=== PATIENT | female | born 1945 | race Caucasian/White ===

== ENCOUNTER 2024-05-04 12:01 | Day surgery (SDC) | payer MEDICARE ==
[2024-04-30 14:06] LABS: APTT 28 SECONDS (22-32); INR 1.1 INR; PROTHROMBIN TIME 11.6 SECONDS (9.0-12.0)
[2024-04-30 14:07] LABS: BASOPHILS # (AUTO) 0.1 X10'3 (0-0.2); BASOPHILS % (AUTO) 0.7 % (0-1); EOSINOPHILS # (AUTO) 0.2 X10'3 (0-0.9); EOSINOPHILS % (AUTO) 2.4 % (0-6); HEMATOCRIT 43.2 % (35.0-45.0); HEMOGLOBIN 14.5 g/dl (12.0-16.0); LYMPHOCYTES # (AUTO) 2.7 X10'3 (1.1-4.8); LYMPHOCYTES % (AUTO) 28.8 % (21-51); MEAN CORPUSCULAR HEMOGLOBIN 29.8 PG (27.0-31.0); MEAN CORPUSCULAR HGB CONC 33.5 g/dL (33.0-36.5); MEAN PLATELET VOLUME 7.7 FL (7.4-10.4); MONOCYTES # (AUTO) 0.8 X10'3 (0-0.9); MONOCYTES % (AUTO) 8.5 % (2-12); NEUTROPHILS # (AUTO) 5.5 X10'3 (1.8-7.7); NEUTROPHILS % (AUTO) 59.6 % (42-75); PLATELET COUNT 291 X10'3 (140-440); RED BLOOD COUNT 4.85 X10'6 (4.20-5.60); RED CELL DISTRIBUTION WIDTH 14.7 % (11.5-14.5); WHITE BLOOD COUNT 9.3 X10'3 (4.5-11.0)
[2024-04-30 14:08] LABS: ALBUMIN 3.6 G/DL (3.4-5.0); ANION GAP 11 (8-16); BLOOD UREA NITROGEN 30 MG/DL (7-18); BUN/CREATININE RATIO 20.8 (10.0-20.0); CALCIUM 10.3 MG/DL (8.5-10.1); CHLORIDE 103 MMOL/L (99-107); CHOL/HDL RATIO 3.1 (0.00-4.99); CHOLESTEROL 180 MG/DL (0-200); CREATININE 1.44 MG/DL (0.40-0.90); GLUCOSE 126 MG/DL (70-104); HDL CHOLESTEROL 58 MG/DL (35-60); LDL CHOLESTEROL 86 MG/DL (50-100); POTASSIUM 3.6 MMOL/L (3.5-5.1); SODIUM 140 MMOL/L (135-145); TOTAL CARBON DIOXIDE 26.4 MMOL/L (24-32); TRIGLYCERIDES 234 MG/DL (20-135); eGFR 35 ML/MIN
[~2024-05-04] VITALS: Ht 154.9 cm; Wt 98.2 kg
[2024-05-04] VITALS (9 sets, daily range): BP systolic 98–153; BP diastolic 53–107; PULSE 62–89; RESP 13–16; TEMP 97.5; O2SAT 96–98
[2024-05-04] MEDS ORDERED: iohexol 350MG/ML 100ml bottle IV ONE ×2 (12:03→14:44)
[2024-05-04] MEDS ORDERED: fentaNYL/PF 50MCG/1 ML 2ML syringe ONE (12:03)
[2024-05-04] MEDS ORDERED: LIDOcaine 1% (10mg/ml) 2ml vial ONE (12:03)
[2024-05-04] MEDS ORDERED: verapamil 2.5 mg/ml inj IV ONE (12:03)
[2024-05-04] MEDS ORDERED: heparin 1,000unit/ml 10ml vial 10 ML ONE (12:03)
[2024-05-04] MEDS ORDERED: midazolam 1 mg/ML 2ml injection ONE (12:03)
[2024-05-04] MEDS ORDERED: nitroGLYCERIN 500mcg/5mL D5W 5 ML IV ONE (12:08)
[2024-05-04] MEDS ORDERED: LORazepam 0.5 MG tablet PO PRN (12:30)
[2024-05-04] MEDS ORDERED: APIX5TAB3 PO (12:41)
[2024-05-04] MEDS ORDERED: FENO200C28 PO (12:41)
[2024-05-04] MEDS ORDERED: EZET10TA48 PO (12:41)
[2024-05-04] MEDS ORDERED: LOSA100T58 PO (12:41)
[2024-05-04] MEDS ORDERED: SEMA0.258 SQ (12:41)
[2024-05-04] MEDS ORDERED: ESTR0.6261 PO (12:41)
[2024-05-04] MEDS ORDERED: POTA10CA95 PO (12:41)
[2024-05-04] MEDS ORDERED: ROSU10TA72 PO (12:43)
[2024-05-04] MEDS: normal saline 1,000 ML IV SCH (12:55)
[2024-05-04] MEDS: diphenhydrAMINE 25mg capsule PO PRN (12:55)
[2024-05-04] MEDS ORDERED: clopidogrel 300mg tablet ONE (14:52)
[2024-05-04] MEDS ORDERED: aspirin 325mg tablet ONE (14:52)
[2024-05-04] MEDS ORDERED: CLOP75TA34 PO (15:33)
[2024-05-04] MEDS ORDERED: ASPI81TA52 PO (15:33)
[2024-05-04] MEDS ORDERED: HYDROcodone/acetaminophen 10/325mg tab PO PRN (15:40)
[2024-05-04] MEDS ORDERED: HYDROcodone/acetaminophen 5mg/325mg tablet PO PRN (15:40)
== END 2024-05-04 17:40 | disposition home or self-care (01) ==
LOC: SSTAY O 12:01
PROVIDERS: ATTEND Internal Medicine Interventional Cardiology
DX: I25.10 Atherosclerotic heart disease of native coronary artery without angina pectoris (principal); I70.0 Atherosclerosis of aorta; I48.91 Unspecified atrial fibrillation; I48.0 Paroxysmal atrial fibrillation; E11.22 Type 2 diabetes mellitus with diabetic chronic kidney disease; I25.2 Old myocardial infarction; E11.42 Type 2 diabetes mellitus with diabetic polyneuropathy; N18.30 Chronic kidney disease, stage 3 unspecified; G62.9 Polyneuropathy, unspecified; Z79.899 Other long term (current) drug therapy; Z98.890 Other specified postprocedural states
CPT/HCPCS: 36415; 80048; 80061; 82948; 85025; 85610; 85730; 93005; 93458; 99152; 99153; A6258; C1725; C1751; C1769; C1874; C1894; C9600; J1644; J2003; J2250; J3010; J3490; J7030; Q0163; Q9967; Z7610

== ENCOUNTER 2025-05-14 15:55 | Emergency (ER) | payer MEDICARE, OTHER ==
[~2025-05-14] VITALS: Ht 154.9 cm; Wt 88.3 kg
[~2025-05-14 15:55] MED LIST: APIX5TAB3 PO; CLOP75TA34 PO; ESTR0.6261 PO; EZET10TA80 PO; FENO200C28 PO; LOSA100T58 PO; POTA10CA95 PO; ROSU10TA98 PO; SEMA0.258 SQ
--- NOTE | 2025-05-14 16:29 | ELECTROCARDIOGRAPH REPORT ---
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
--- NOTE | 2025-05-14 17:16 | Physician Documentation ---
History of Present Illness ~ Chief Complaint: Palpitations Stated Complaint: EPISTAXIS Time Seen by MD: 16:11 OK to notify your PCP?: Yes Source: patient Mode of Arrival: POV Exam Limitations: no limitations HPI 80-year-old female who is here due to a nosebleed. She reports she had four nosebleeds today which is very unusual for her. She had three nosebleeds before noon today and then when she had her 4th nosebleed which was around 1430 this afternoon she called an ambulance as she states she also started to feel lightheaded. She states that the nosebleed started about three months ago and she has been averaging about one nosebleed a month and she has never had anything. She is on Eliquis has been on Eliquis for 2-3 years now. Denies any other bleeding issues such as bleeding from her gums or rectum. No chest pain or syncopal episodes. No sinus pain, fever, chills, sore throat. Pre arrival treatment with fluticasone nasal spray which she states she read online to use a nasal spray so she use the fluticasone. She states this did not help. Medication Reconciliation Allergies: Coded Allergies: pregabalin (Verified Allergy, Unknown, 05/14/25) Scheduled Apixaban (Eliquis), 1 TAB PO BID, (Reported) Clopidogrel Bisulfate (Clopidogrel), 1 TAB PO DAILY Estrogens, Conjugated (Premarin), 1 TAB PO DAILY, (Reported) Ezetimibe (Ezetimibe), 1 TAB PO DAILY, (Reported) Fenofibrate,Micronized (Fenofibrate), 1 CAP PO DAILY, (Reported) Losartan Potassium (Losartan Potassium), 0.5 TAB PO DAILY, (Reported) Potassium Chloride* (Potassium Chloride*), 1 TAB PO BID, (Reported) Rosuvastatin Calcium (Rosuvastatin Calcium), 1 TAB PO HS, (Reported) Semaglutide (Ozempic), 0.25 MG SQ Q7D, (Reported) Past Medical History Past Medical History: No Pertinent History Past Surgical History: noncontributory Review of Systems All Other Systems at this time: Reviewed and Negative Physical Exam Vital Signs: Temperature: 97.1, Source: Temporal, Heart Rate: 94, Respiratory Rate: 16, BP: 102/81, Pulse Oximetry: 99, Weight: 88.270 Oxygen Flow Rate: 0 Physical Exam General Appearance: Alert, WD/WN. NAD. HEENT: NCAT, PERRL, EOMI. Posterior pharyngeal wall no blood. Left and right nostril some blood but no active bleeding. No sinus tenderness. Neck: Supple, trachea midline. Cardiovascular: RRR. No m/r/g. Lungs: CTAB. Breathing unlabored Extremities: Normal inspection. No edema. Skin: Warm/dry, normal color Neurological: Alert and oriented x4, normal gait. Psychiatric: Affect congruent with mood. Progress Results/Orders Results/Orders Orders - ARSEN BARTHOLOMEW Cbc/Diff (05/14/25 17:02) Bmp Er (05/14/25 17:02) Oxymetazoline Nasal [place] (Afrin Nasal S (05/14/25 17:45) Completed Orders - ARSEN BARTHOLOMEW Electrocardiogram (05/14/25 ) Vital Signs 05/14/25 05/14/25 05/14/25 16:15 17:04 17:24 Temp 97.1 Pulse 96 94 Resp 19 16 14 B/P (MAP) 110/61 102/81 (88) Pulse Ox 100 99 O2 Flow Rate 0 0 Laboratory Tests Test 05/14/25 16:12 05/14/25 17:28 Glucometer 158 H CBC Comment Chemistry Comments Medical Decision Making Additional information obtaine: old records Findings reviewed heart cath report from 04/2024 Differential Dx:Considerations: Include: angina / MD, atrial dysrhythmia, atrial fibrillation, atrial flutter, MAT, PACs, PSVT, sinus tachycardia, WPW, 1st degree AV block, 2nd degree AVB-type 1, 2nd degree AVB-type 2, 3rd degree AV block, PVCs, torsades de pointes, ventricular fibrillation, ventricular tachycardia Differential Dx:Considerations: Include anxiety/panic attack, Include heart failure, Include pulmonary embolus, Include renal failure Additional Information Considering patient reports lightheadedness associated with the nosebleeds I wanted to get a CBC to make sure that her hemoglobin was okay. She did not require nasal packing as the nosebleed subsided on its own. I recommended she follow up with primary care provider for referral to ENT given how nosebleeds have been recurrent over the past three nights. Departure Time of Disposition: 17:17 Disposition: 01 HOME / SELF CARE / HOMELESS Impression: Primary Impression: Frequent nosebleeds Additional Impressions: Chronic anticoagulation Atrial fibrillation Qualified Codes: I48.91 - Unspecified atrial fibrillation Intermittent lightheadedness Condition: Stable Discharge Instructions: General Discharge Instructions Additional Instructions: I do recommend you get a referral to an ear nose throat physician due to these recurrent nosebleeds. Follow up with primary care provider when you are able to for this referral as we can not refer from the ER. If nosebleed recurs pinch the end of your nose like we discussed for 15 minutes if it continues after this than come to the ER. And make sure that you pinch the end of your nose continuously for that duration of time before you unpinch. As well as use afrin to help the vessels in the nose constrict. Afrin can be addicting and thus only use it as directed for nosebleeds. Referrals: NO PRIMARY CARE PROVIDER (PCP) Education Educated: Patient Educated regarding: diagnosis, treatment, need for follow up Signature Scribe Signature: x Attestation: ARSEN Charles May 14, 2025 17:16
[2025-05-14 17:43] LABS: MEAN PLATELET VOLUME 8.2 FL (7.4-10.4); RED CELL DISTRIBUTION WIDTH 14.3 % (11.5-14.5)
[2025-05-14] MEDS ORDERED: oxymetazoline 15 ML nasal spray NS ONE (17:45)
[2025-05-14 17:55] LABS: CREATININE 1.91 MG/DL (0.40-0.90); TOTAL CARBON DIOXIDE 24.0 MMOL/L (24-32); eCRCL 18 ML/MIN; eGFR 25 ML/MIN
[2025-05-14 17:57] VITALS: BP 99/60; PULSE 92; RESP 16; TEMP 98; O2SAT 98
== END 2025-05-14 17:52 | disposition home or self-care (01) ==
LOC: ER 15:56
DX: R04.0 Epistaxis (principal); I48.91 Unspecified atrial fibrillation; Z79.01 Long term (current) use of anticoagulants; Z88.8 Allergy status to other drugs, medicaments and biological substances; Z79.899 Other long term (current) drug therapy
CPT/HCPCS: 36415; 80048; 82948; 85025; 93005; 99284